=== PATIENT | female | born 1995 | race Caucasian/White ===

== ENCOUNTER 2017-05-04 01:55 | Emergency (ER) | payer OTHER ==
[~2017-05-04] VITALS: Ht 162.6 cm; Wt 90.7 kg
[~2017-05-04 01:55] MED LIST: AMOX500 PO; AZIT250 PO; BC PO; Bactrim Ds Tab1 EACH PO; CODACE30 PO; CODACEE120 PO; CRUTCH USE; Celexa40 MG PO; Cipro500 MG PO; DIPH25 PO; DOXY100T53; Depo-Prove150 MG/11 IM; HYDACE5 PO; HYDR1TAB94 PO; IBUP200 PO; IBUP400 PO; IBUP600 PO; IBUP800 PO; NORPLANT; PROM25 PO; Pepcid40 MG PO; Protonix40 MG PO; RXCODACESY PO; SUCR1 PO; Tylenol325 MG PO; Zofran4 MG PO
[2017-07-10] MEDS ORDERED: SUMA25 PO (15:54)
[2017-07-10] MEDS ORDERED: PROP60 PO (15:54)
[2017-07-10] MEDS ORDERED: TOPI25 PO (15:55)
== END 2017-05-04 03:56 | disposition home or self-care (01) ==
LOC: ER 01:55
DX: S63.613A Unspecified sprain of left middle finger, initial encounter (principal); S63.615A Unspecified sprain of left ring finger, initial encounter; J45.909 Unspecified asthma, uncomplicated; F17.200 Nicotine dependence, unspecified, uncomplicated; Z88.8 Allergy status to other drugs, medicaments and biological substances; Z88.2 Allergy status to sulfonamides; Z88.1 Allergy status to other antibiotic agents; X58.XXXA Exposure to other specified factors, initial encounter
CPT/HCPCS: 29130; 73130; 99283

== ENCOUNTER 2017-07-18 08:19 | Day surgery (SDC) | payer OTHER ==
[2017-07-16 12:17] LABS: Hematocrit 38.3 % (33.0-51.0); Hemoglobin 13.3 g/dL (11.5-16.0); Mean Corpuscular HGB 31.3 pg (26.0-34.0); Mean Corpuscular HGB Conc 34.7 g/dL (31.5-36.5); Mean Corpuscular Volume 90 fL (80-100); Mean Platelet Volume 10.1 fL (9.1-12.4); Platelet Count 354 K/mm3 (150-400); RDW Standard Deviation 39.5 fL (35.1-46.3); Red Blood Cell Count 4.25 M/mm3 (3.80-5.20); White Blood Cell Count 9.36 K/mm3 (4.00-11.30)
[~2017-07-18] VITALS: Ht 162.6 cm; Wt 90.7 kg
[~2017-07-18 08:19] MED LIST changes: +PROP60 PO; +SUMA25 PO; +TOPI25 PO
[2017-07-19 04:59] LABS: BASOPHILS ABSOLUTE AUTO 0.03 K/mm3 (0.00-0.23); BASOPHILS PERCENT AUTO 0 % (0-2); EOSINOPHILS ABSOLUTE AUTO 0.01 K/mm3 (0.00-0.68); EOSINOPHILS PERCENT AUTO 0 % (0-6); Hematocrit 32.4 % (33.0-51.0); Hemoglobin 11.4 g/dL (11.5-16.0); IMMATURE GRAN ABSOLUTE AUTO 0.05 K/mm3 (0.00-0.10); IMMATURE GRAN PERCENT AUTO 0 % (0-1); LYMPHOCYTES ABSOLUTE AUTO 2.88 K/mm3 (0.84-5.20); LYMPHOCYTES PERCENT AUTO 21 % (21-46); MONOCYTES PERCENT AUTO 8 % (4-13); Mean Corpuscular HGB 30.9 pg (26.0-34.0); Mean Corpuscular HGB Conc 35.2 g/dL (31.5-36.5); Mean Corpuscular Volume 88 fL (80-100); Mean Platelet Volume 9.5 fL (9.1-12.4); NEUTROPHILS ABSOLUTE AUTO 9.38 K/mm3 (1.96-9.15); NEUTROPHILS PERCENT AUTO 70 % (41-73); Platelet Count 319 K/mm3 (150-400); RDW Coefficient Variation 11.9 % (11.7-14.2); RDW Standard Deviation 37.9 fL (35.1-46.3); Red Blood Cell Count 3.69 M/mm3 (3.80-5.20); White Blood Cell Count 13.45 K/mm3 (4.00-11.30)
[2017-07-19] MEDS ORDERED: DOCU100 PO (12:30)
[2017-07-19] MEDS ORDERED: ESTR2 PO ×2 (12:31→12:34)
[2017-07-19] MEDS ORDERED: IBUP800 PO (12:31)
[2017-07-19] MEDS ORDERED: Milk Of Ma400 MG/5 M PO (12:32)
[2017-07-19] MEDS ORDERED: SIME80CH PO (12:33)
[2017-07-19] MEDS ORDERED: Percocet 5-3251 EACH PO (12:33)
[2017-07-19] MEDS ORDERED: PROM25 PO (12:34)
== END 2017-07-19 13:10 | disposition home or self-care (01) ==
LOC: ORSCMMR 08:19 → ORD 10:00 → SURS 13:15 → ORSCMMR 07-19 13:10
PROVIDERS: Obstetrics & Gynecology
PROC: 0UT2FZZ Resection of Bilateral Ovaries, Via Natural or Artificial Opening With Percutaneous Endoscopic Assistance (ICD-10-PCS; principal; 2017-07-18 10:00)
PROC: 0UT9FZZ Resection of Uterus, Via Natural or Artificial Opening With Percutaneous Endoscopic Assistance (ICD-10-PCS; principal; 2017-07-18 10:00)
DX: N92.1 Excessive and frequent menstruation with irregular cycle (principal); N94.6 Dysmenorrhea, unspecified; N80.1 Endometriosis of ovary; N80.3 Endometriosis of pelvic peritoneum; K66.0 Peritoneal adhesions (postprocedural) (postinfection); R10.2 Pelvic and perineal pain; E66.9 Obesity, unspecified; Z68.34 Body mass index [BMI] 34.0-34.9, adult
CPT/HCPCS: 36415; 84703; 85025; 85027; 86850; 86900; 86901; 88307; J0171; J0690; J1170; J1885; J2250; J2405; J2765; J3010; J7120

== ENCOUNTER → 2017-10-07 | Outpatient (CLI) | payer OTHER ==
[~2017-10-07] MED LIST changes: +DOCU100 PO; +ESTR2 PO; +Milk Of Ma400 MG/5 M PO; +Percocet 5-3251 EACH PO; +SIME80CH PO
== END ==
LOC: LAB SHORT 08:30 → LAB FUT 10-03 11:45
PROVIDERS: Nurse Practitioner Family
DX: R60.0 Localized edema (principal)
CPT/HCPCS: 81050

== ENCOUNTER → 2018-05-07 | Outpatient (CLI) | payer OTHER ==
[2018-05-08 14:08] LABS: HPV 16 Negative (Negative); HPV 18 Negative (Negative); HPV OTHER HR TYPES Negative (Negative)
== END | disposition home or self-care (01) ==
LOC: LAB 12:26 → LAB SHORT 12:26
PROVIDERS: Nurse Practitioner Women's Health
DX: Z11.3 Encounter for screening for infections with a predominantly sexual mode of transmission (principal); Z91.89 Other specified personal risk factors, not elsewhere classified
CPT/HCPCS: 87624; G0123

== ENCOUNTER → 2018-06-29 | Outpatient (CLI) | payer OTHER | END | disposition home or self-care (01) | LOC: LAB SHORT 16:12 → LAB EV 16:12 | DX: J02.9 Acute pharyngitis, unspecified (principal) | CPT/HCPCS: 87070 ==

== ENCOUNTER → 2019-04-09 | Outpatient (CLI) | payer OTHER | LOC: LAB 11:20 → LAB SHORT 11:20 | DX: K52.9 Noninfective gastroenteritis and colitis, unspecified (principal); R10.12 Left upper quadrant pain | CPT/HCPCS: 87015; 87045; 87046; 87205; 87338; 87493; 87899 ==

== ENCOUNTER 2019-05-27 08:29 | Day surgery (SDC) | payer OTHER ==
[~2019-05-27] VITALS: Ht 162.6 cm; Wt 65.7 kg
--- NOTE | 2019-05-27 11:13 | NUR ---
05/27/19 1113 Amena Davey V PER [email or web address], PT DEVELOPED A RASH ON HER BACK, NECK, AND CHEST DURING THE PROCEDURE FOR WHICH DR. ANGEL WAS CALLED IN AND BENADRYL WAS ADMINISTERED. UPPON ARRIVING TO SDU, RASH APPEARED TO HAVE CLEARED UP; SLIGHT SKIN IRRITATION WAS NOTED WHERE EKG STICKERS WERE PLACED. WHEN INFORMING PT AND HER STEPMOTHER, TING, ABOUT THE RASH, PT STATED SHE HAS A TENDENCY TO GET "RED SPLOTCHES" WHEN SHE TAKES MEDS. PT AND PT'S STEPMOM STATE PT HAS "SENSITIVE SKIN".
== END 2019-05-27 11:04 | disposition home or self-care (01) ==
LOC: ORSCSDS 08:29
PROVIDERS: Student in an Organized Health Care Education/Training Program
PROC: 0DB58ZX Excision of Esophagus, Via Natural or Artificial Opening Endoscopic, Diagnostic (ICD-10-PCS; principal; 2019-05-27 09:45)
PROC: 0DBE8ZX Excision of Large Intestine, Via Natural or Artificial Opening Endoscopic, Diagnostic (ICD-10-PCS; principal; 2019-05-27 09:45)
PROC: 0DB78ZX Excision of Stomach, Pylorus, Via Natural or Artificial Opening Endoscopic, Diagnostic (ICD-10-PCS; principal; 2019-05-27 09:45)
DX: K92.1 Melena (principal); K21.9 Gastro-esophageal reflux disease without esophagitis; R19.4 Change in bowel habit; R10.9 Unspecified abdominal pain; K63.89 Other specified diseases of intestine; K29.70 Gastritis, unspecified, without bleeding; K57.30 Diverticulosis of large intestine without perforation or abscess without bleeding; K64.8 Other hemorrhoids
CPT/HCPCS: 88305; 88342; J1200; J2250; J2704; J7120

== ENCOUNTER 2023-08-01 18:06 | Emergency (ER) | payer OTHER ==
[~2023-08-01] VITALS: Ht 162.6 cm; Wt 62.6 kg
[2023-08-01] MEDS ORDERED: CLIMARA1 EACH TOP (18:40)
[2023-08-01] MEDS ORDERED: DEPO-TESTO200 MG/18 IM (18:40)
[2023-08-01] MEDS ORDERED: PROG100 PO (18:40)
[2023-08-01] MEDS ORDERED: OXANDRIN PO (18:40)
[2023-08-01 18:45] LABS: BASOPHILS ABSOLUTE AUTO 0.02 K/mm3 (0.00-0.23); BASOPHILS PERCENT AUTO 0 % (0-2); EOSINOPHILS ABSOLUTE AUTO 0.12 K/mm3 (0.00-0.68); EOSINOPHILS PERCENT AUTO 2 % (0-6); Hematocrit 41.8 % (33.0-51.0); Hemoglobin 14.6 g/dL (11.5-16.0); IMMATURE GRAN ABSOLUTE AUTO 0.01 K/mm3 (0.00-0.10); IMMATURE GRAN PERCENT AUTO 0 % (0-1); LYMPHOCYTES ABSOLUTE AUTO 1.72 K/mm3 (0.84-5.20); LYMPHOCYTES PERCENT AUTO 21 % (21-46); MONOCYTES ABSOLUTE AUTO 0.98 K/mm3 (0.16-1.47); MONOCYTES PERCENT AUTO 12 % (4-13); Mean Corpuscular HGB Conc 34.9 g/dL (31.5-36.5); Mean Corpuscular Volume 92 fL (80-100); Mean Platelet Volume 9.4 fL (9.1-12.4); NEUTROPHILS ABSOLUTE AUTO 5.18 K/mm3 (1.96-9.15); NEUTROPHILS PERCENT AUTO 65 % (41-73); Platelet Count 246 K/mm3 (150-400); RDW Coefficient Variation 11.6 % (11.7-14.2); RDW Standard Deviation 39.3 fL (35.1-46.3); Red Blood Cell Count 4.56 M/mm3 (3.80-5.20); White Blood Cell Count 8.03 K/mm3 (4.00-11.30)
[2023-08-01 19:02] LABS: Albumin, Blood 3.8 g/dL (3.4-5.0); Albumin/Globulin Ratio 1.1 (0.8-1.8); Bilirubin, Total 0.3 mg/dL (0.1-1.0); Bun/Creatinine Ratio 9.5 (12.0-20.0); Calcium, Blood 9.1 mg/dL (8.5-10.1); Creatinine, Blood 0.74 mg/dL (0.40-1.00); Globulin, Blood 3.5 g/dL (2.2-4.0); Potassium, Blood 3.7 mmol/L (3.5-5.5); Total Protein, Blood 7.3 g/dL (6.4-8.2)
[2023-08-01] MEDS ORDERED: NS 1,000 ML IV SCH (19:20)
[2023-08-01 19:53] LABS: Source, Urine Clean Catch
[2023-08-01 19:58] LABS: Appearance, Urine Hazy (Clear); Bilirubin, Urine Neg (Neg); Blood, Urine Neg (Neg); Glucose Qualitative, Urine Neg (Neg); Ketones, Urine Neg (Neg); Leukocyte Esterase, Urine Neg (Neg); Nitrite, Urine Neg (Neg); Protein, Urine 1+ (Neg); Specific Gravity, Urine 1.005 (1.003-1.022); Urobilinogen, Urine NORM (Normal); pH, Urine 6.5 (5.0-8.0)
[2023-08-01 20:08] LABS: Color, Urine Pale Yellow (P-Yellow)
[2023-08-01 20:10] LABS: Amorphous Light (0-Heavy); Bacteria Many /hpf; Red Blood Cells, Urine 0-2 /hpf (0-2); Squamous Epithelial Cells Many /hpf (Few); White Blood Cells, Urine 0-2 /hpf (0-5)
[2023-08-01 20:57] VITALS: BP 116/68
== END 2023-08-01 20:58 | disposition home or self-care (01) ==
LOC: ER 18:06
PROVIDERS: Emergency Medicine
DX: K52.9 Noninfective gastroenteritis and colitis, unspecified (principal); Z88.8 Allergy status to other drugs, medicaments and biological substances; Z88.2 Allergy status to sulfonamides; Z88.1 Allergy status to other antibiotic agents; Z79.899 Other long term (current) drug therapy; K21.9 Gastro-esophageal reflux disease without esophagitis
CPT/HCPCS: 74177; 80053; 81001; 85025; 96360; 99284-25; J7030; Q9967